=== PATIENT | female | born 1955 | race African-American/Black ===

== ENCOUNTER 2018-08-12 02:42 | Inpatient (IN) | payer MEDICAID, MEDICARE ==
[~2018-08-12] VITALS: Ht 167.6 cm; Wt 64.9 kg
[2018-08-12 03:42] LABS: BASOPHILS % 0.7 % (0.0-2.0); EOSINOPHILS % 0.5 % (0.0-5.0); HEMATOCRIT. 39.5 % (36.0-48.0); HEMOGLOBIN. 13.2 g/dL (12.0-16.0); LYMPHOCYTES % 54.1 % (20.0-50.0); MEAN CORPUSCULAR HEMOGLOBIN 28.7 pg (28.0-32.0); MEAN CORPUSCULAR VOLUME 86.2 fL (81.0-99.0); MEAN PLATELET VOLUME 9.1 fl (7.4-10.4); MONOCYTES % 9.9 % (2.0-8.0); NEUTROPHILS % 34.8 % (40.0-76.0); PLATELET 197 x1000/uL (130-400); RED BLOOD CELL COUNT 4.59 mill/uL (4.2-5.4); RED CELL DISTRIBUTION WIDTH 13.6 % (11.6-14.6)
[2018-08-12 03:43] LABS: CHLORIDE 105 mEq/L (98-107)
[2018-08-12] MEDS ORDERED: POTASSIUM CHLORIDE 20MEQ TABLET SR PO NR (04:45)
[2018-08-12] MEDS ORDERED: IPRATROPIUM/ALBUTEROL 0.5-3(2.5)MG/3ML NEB INH PRN (08:30)
[2018-08-12] MEDS ORDERED: ONDANSETRON HCL 4MG/2ML INJ IV PRN (08:30)
[2018-08-12] MEDS ORDERED: ZOLPIDEM TARTRATE 5MG TABLET PO PRN (08:30)
[2018-08-12] MEDS ORDERED: MAGNESIUM/ALUMINUM HYDROXIDE/SIMETHICONE 30ML UDC PO PRN (08:30)
[2018-08-12] MEDS ORDERED: LORAZEPAM 0.5MG TABLET PO PRN (08:30)
[2018-08-12] MEDS ORDERED: GUAIFENESIN 200MG/10ML SUGAR FREE UDC PO PRN (08:30)
[2018-08-12] MEDS ORDERED: DOCUSATE SODIUM 100MG CAPSULE PO PRN (08:30)
[2018-08-12] MEDS ORDERED: CLONIDINE 0.1MG TABLET PO PRN (08:30)
[2018-08-12 09:12] LABS: ETHANOL BLOOD < 10 mg/dL
[2018-08-12 09:15] LABS: LDL CHOLESTEROL 101 mg/dL (5-100)
[2018-08-12 09:17] LABS: HDL CHOLESTEROL 55 mg/dL (40-59)
[2018-08-12 10:00] VITALS: BP 153/74
[2018-08-12] MEDS ORDERED: AM500 PO (10:42)
[2018-08-12] MEDS ORDERED: OMEP40CA34 PO (10:42)
[2018-08-12] MEDS ORDERED: HYDR12.529 PO (10:42)
[2018-08-12] MEDS ORDERED: BENA5TAB6 PO (10:42)
[2018-08-12] MEDS ORDERED: AMLO5TAB88 PO (10:42)
[2018-08-12] MEDS ORDERED: ENOXAPARIN 40MG/0.4ML SYR SUBCUT SCH (11:00)
[2018-08-12] MEDS: KETOROLAC 15MG/ML VIAL IV PRN ×2 (11:28→18:09)
[2018-08-12 12:00] VITALS: BP 153/74
[2018-08-12] MEDS ORDERED: PNEUMOCOCCAL 23-VAL P-SAC VAC 0.5 ML IM ONE (13:00)
[2018-08-12] MEDS ORDERED: INFLUENZA VIRUS VACCINE(AFLURIA) 0.5ML SYR IM ONE (13:00)
[2018-08-12] MEDS: ASPIRIN 325MG EC TABLET PO SCH (14:25)
[2018-08-12] MEDS: FAMOTIDINE 20MG TABLET PO SCH ×2 (14:25→21:54)
[2018-08-12] MEDS: SUCRALFATE 1 G/10 ML UDC PO SCH ×3 (14:30→21:54)
[2018-08-12] MEDS: ACETAMINOPHEN 325MG TABLET PO PRN ×2 (15:53→21:55)
[2018-08-12 16:00] VITALS: BP 140/67
[2018-08-12 16:41] LABS: CREATINE KINASE MB FRACTION < 1.0 ng/mL (0.5-3.6)
[2018-08-12 16:45] LABS: CREATINE KINASE 80 IU/L (26-192)
[2018-08-12 20:00] VITALS: BP 136/85
[2018-08-12] MEDS: HYDRALAZINE HCL 50MG TABLET PO SCH (21:54)
[2018-08-12] MEDS: BENAZEPRIL 10MG TABLET PO SCH (21:54)
[2018-08-13] VITALS: BP 112/58
[2018-08-13] MEDS: KETOROLAC 15MG/ML VIAL IV PRN ×2 (01:06→10:08)
[2018-08-13 02:02] LABS: CREATINE KINASE 26 IU/L (26-192)
[2018-08-13 02:03] LABS: CREATINE KINASE MB FRACTION < 1.0 ng/mL (0.5-3.6)
[2018-08-13 04:00] VITALS: BP 123/70
[2018-08-13] MEDS: HYDRALAZINE HCL 50MG TABLET PO SCH (06:53)
[2018-08-13] MEDS: SUCRALFATE 1 G/10 ML UDC PO SCH (07:56)
[2018-08-13 07:59] VITALS: BP 133/79
[2018-08-13] MEDS: BENAZEPRIL 10MG TABLET PO SCH (09:18)
[2018-08-13] MEDS: FAMOTIDINE 20MG TABLET PO SCH (09:18)
[2018-08-13] MEDS: ASPIRIN 325MG EC TABLET PO SCH (09:18)
[2018-08-13 09:49] VITALS: BP 133/79
[2018-08-13 10:08] VITALS: BP 133/79
== END 2018-08-13 10:45 | disposition home or self-care (01) | DRG 203 ==
LOC: ER 02:42 → 7WST 04:40 → EDBEDREQ 04:57 → EDBEDREQTM 04:57 → ENRESERV 07:08
PROVIDERS: ADMIT Internal Medicine; ATTEND Internal Medicine
DX: R07.89 Other chest pain (principal); I44.1 Atrioventricular block, second degree; I48.91 Unspecified atrial fibrillation; I49.9 Cardiac arrhythmia, unspecified; I10 Essential (primary) hypertension; Z72.0 Tobacco use; Z82.49 Family history of ischemic heart disease and other diseases of the circulatory system; Z81.2 Family history of tobacco abuse and dependence
CPT/HCPCS: 36415; 71045; 80061; 80320; 82550; 82553; 83036; 83735; 83880; 84484; 90686; 90732; 93005; 99285; J1650; J1885; J2405; J7620; G0480

== ENCOUNTER 2023-04-01 13:31 | Emergency (ER) | payer MEDICAID, MEDICARE ==
[~2023-04-01] VITALS: Ht 167.6 cm; Wt 65.7 kg
[~2023-04-01 13:31] MED LIST: AMLO5TAB88 PO; AMOX-494 PO; BENA5TAB40 PO; HYDR12.529 PO; OMEP40CA20 PO
[2023-04-01] MEDS ORDERED: TOPUD MT (14:05)
[2023-04-01 14:06] VITALS: BP 127/97; PULSE 70; RESP 16; TEMP 98.1; O2SAT 100
== END 2023-04-01 15:45 | disposition home or self-care (01) ==
LOC: ER 14:31
DX: Z48.00 Encounter for change or removal of nonsurgical wound dressing (principal)
CPT/HCPCS: 99282